=== PATIENT | female | born 1995 | race Caucasian/White ===

== ENCOUNTER 2019-02-07 19:29 | Emergency (ER) | payer MEDICAID, OTHER ==
[~2019-02-07] VITALS: Ht 167.6 cm; Wt 105.2 kg
[~2019-02-07 19:29] MED LIST: FERR-31 PO; PRENAT PO
[2019-02-07 19:44] VITALS: Ht 167.6 cm; Wt 105.2 kg
[2019-02-07] MEDS ORDERED: PRED20TA PO (22:00)
[2019-02-07] MEDS ORDERED: IBUP-1542 PO (22:00)
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
[2019-02-07 22:16] VITALS: BP 128/69; PULSE 83; RESP 18
[2019-02-07] MEDS ORDERED: DEXAMETHASONE 10 MG/ML 1 ML INJ IM ONE (22:30)
== END 2019-02-07 22:51 | disposition home or self-care (01) ==
LOC: FTE 19:29
DX: M54.5 Low back pain (principal); M54.2 Cervicalgia
CPT/HCPCS: 81025; 96372; J1100; Z7502